=== PATIENT | female | born 2000 | race Caucasian/White ===

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

== ENCOUNTER 2024-01-23 15:46 | Emergency (ER) | payer BC, SELFPAY ==
[2024-01-23] MEDS ORDERED: Lidocaine 1% PF 5 ML VIAL ONE (16:58)
[2024-01-23] MEDS ORDERED: Boostrix 0.5 ML (Tdap) VIAL (>/=7 yrs of age) ONE (17:05)
== END 2024-01-23 18:08 | disposition home or self-care (01) ==
LOC: ERS 15:46
DX: S61.412A Laceration without foreign body of left hand, initial encounter (principal); Z23 Encounter for immunization; W45.8XXA Other foreign body or object entering through skin, initial encounter; Y93.G3 Activity, cooking and baking; Y92.000 Kitchen of unspecified non-institutional (private) residence as the place of occurrence of the external cause
CPT/HCPCS: 12001; 90471; 90715